=== PATIENT | male | born 1960 | race Caucasian/White ===

== ENCOUNTER 2017-07-23 07:21 | Emergency (ER) | payer BC ==
[~2017-07-23] VITALS: Ht 170.2 cm; Wt 83.9 kg
[2017-07-23] MEDS ORDERED: HYDR-971 PO (08:32)
[2017-07-23] MEDS ORDERED: AMOX1TAB61 PO (08:32)
--- NOTE | 2017-07-23 08:33 | PHYS DOC ---
Adult General Chief Complaint Chief Complaint: HEADACHE HPI HPI Patient is a 56 year old M who presents with pain in the left side of his face associated with a painful tooth. He feels that his pain radiates to the ear. He denies fever sweats or chills. He also has had moderate nasal congestion is been using Mucinex. His dentist didn't give him amoxicillin which has not improved his symptoms. He denies other associated symptoms. He has no other exacerbating or alleviating factors Review of Systems Review of Systems Constitutional: Denies fever or chills [] Eyes: Denies change in visual acuity, redness, or eye pain [] HENT: Denies sore throat [] Respiratory: Denies cough or shortness of breath [] Cardiovascular: No additional information not addressed in HPI [] GI: Denies abdominal pain, nausea, vomiting, bloody stools or diarrhea [] : Denies dysuria or hematuria [] Musculoskeletal: Denies back pain or joint pain [] Integument: Denies rash or skin lesions [] Neurologic: Denies focal weakness or sensory changes [] Endocrine: Denies polyuria or polydipsia [] All other systems were reviewed and found to be within normal limits, except as documented in this note. Family History Family History No pertinent medical history was reported Current Medications Current Medications Current medications were reviewed Allergies Allergies NKDA Physical Exam Physical Exam Constitutional: Well developed, well nourished, no acute distress, non-toxic appearance. [] HENT: Normocephalic, atraumatic, left upper molar noted have mild gingival erythema as well as moderate tenderness to palpation. Moderate nasal mucosa erythema and edema bilaterally. Ears normal appearing bilaterally including TM Eyes:, EOMI, conjunctiva normal, no discharge. [] Neck: Normal range of motion, no tenderness, supple, no stridor. [] Cardiovascular:Heart rate regular rhythm Lungs & Thorax: Bilateral breath sounds clear to auscultation [] Abdomen: Bowel sounds normal, soft, no tenderness, no masses, no pulsatile masses. [] Back: No tenderness, no CVA tenderness. [] Extremities: No tenderness, no cyanosis, no clubbing, ROM intact, no edema. [] Neurologic: Alert and oriented X 3, normal motor function, normal sensory function, no focal deficits noted. [] Psychologic: Affect normal, judgement normal, mood normal. [] Current Patient Data Vital Signs Normal vital signs. Please review nursing recommendation for specifics EKG EKG [] Radiology/Procedures Radiology/Procedures [] Course & Med Decision Making Course & Med Decision Making Pertinent Labs and Imaging studies reviewed. (See chart for details) [] Dragon Disclaimer Dragon Disclaimer This electronic medical record was generated, in whole or in part, using a voice recognition dictation system. Departure Departure: Impression: Primary Impression: Dental infection Disposition: HOME, SELF-CARE Condition: STABLE Referrals: FRED HAAS (PCP) Patient Instructions: Dental Abscess Additional Instructions: Milad was seen in the emergency department for face and dental pain. No emergency medical condition was found on history or physical exam. His symptoms are most consistent with a dental infection. He is given a prescription for Augmentin which is stronger than amoxicillin. He is advised to discontinue the amoxicillin. He was given a prescription for pain medications. He is advised follow-up with his dentist as soon as possible for further management. He was also advised consider following up with his primary care doctor if his symptoms do not resolve. Scripts Hydrocodone Bit/Acetaminophen (NORCO 5-325 TABLET) 1 Each Tablet 1 TAB PO TID for 3 Days, #9 TAB Prov: GENI MILES MD 07/23/17 Amoxicillin/Potassium Clav (AUGMENTIN 875-125 TABLET) 1 Each Tablet 1 TAB PO BID for 14 Days, #28 TAB Prov: GENI MILES MD 07/23/17 GENI MILES MD Jul 23, 2017 08:33
[2017-07-23 09:07] VITALS: BP 168/86
[2017-07-23] MEDS ORDERED: AMOXICILLIN/K CLAV 875/125MG TABLET. PO ONE (09:10)
[2017-07-23] MEDS ORDERED: HYDROcodone/APAP 5/325MG 1 TAB TABLET PO ONE (09:10)
== END 2017-07-23 09:08 | disposition home or self-care (01) ==
LOC: ER 07:21
DX: K04.7 Periapical abscess without sinus (principal); R51 Headache; R09.81 Nasal congestion
CPT/HCPCS: 99283